=== PATIENT | male | born 1960 | race African-American/Black ===

== ENCOUNTER → 2020-01-25 | Emergency (ER) | payer BC, OTHER ==
[~2020-01-25] VITALS: Ht 175.3 cm; Wt 103.0 kg
[~2020-01-25] MED LIST: KETOROLAC TROMETH 60MG/2ML VIAL IM ONE
[2020-01-25 12:46] LABS: Urine WBC None Seen /hpf (0 - 3)
[2020-01-25 12:56] LABS: Urine Bacteria NONE SEEN /hpf (None Seen); Urine Blood Negative /uL (Negative); Urine Specific Gravity 1.007 (1.001-1.035)
[2020-01-25 13:50] VITALS: BP 146/72
== END | disposition home or self-care (01) ==
LOC: ER 11:29
DX: S39.012A Strain of muscle, fascia and tendon of lower back, initial encounter (principal); E78.5 Hyperlipidemia, unspecified; F17.210 Nicotine dependence, cigarettes, uncomplicated; X50.9XXA Other and unspecified overexertion or strenuous movements or postures, initial encounter; Y93.89 Activity, other specified; Y92.89 Other specified places as the place of occurrence of the external cause; Y99.8 Other external cause status
CPT/HCPCS: 72131; 81001; 93005; 96372; 99285; J1885